=== PATIENT | female | born 1940 | race Caucasian/White ===

== ENCOUNTER → 2018-08-04 10:01 | Outpatient (CLI) | payer SELFPAY ==
--- NOTE | 2018-08-04 10:09 | ECHOD_ITS ---
Reason For Study: AORTIC STENOSIS Procedure This was a 2D Doppler, Color Flow transthoracic echocardiogram. Exam performed in department. Left Ventricle Normal LV size. Left ventricular systolic function is normal. The estimated ejection fraction is 60 %. Stage 3 diastolic dysfunction. No regional wall motion abnormalities noted. Atria The left atrium is moderately enlarged. Normal right atrium. Mitral Valve Normal mitral valve. Mild-Moderate (1-2+) eccentric mitral valve insufficiency. Tricuspid Valve Normal tricuspid valve. Mild to moderate (1-2+) tricuspid valve insufficiency. Pulmonary artery systolic pressure is 35 mmHg. Aortic Valve Trisinus/trileaflet aortic valve. Moderate focal aortic valve thickening. Peak aortic valve gradient 55 mmHg. Mean aortic valve gradient 33 mmHg. Severe aortic stenosis. Calculated aortic valve area (continuity equation) is 0.8-0.9 cm2. Trivial eccentric aortic valve insufficiency. Pulmonic Valve Normal pulmonic valve. Great Vessels Normal aortic root. The pulmonary artery is normal size. Normal inferior vena cava. Pericardium/Pleural No pericardial effusion. MMode/2D Measurements & Calculations LVIDd: 4.7 cm IVSd: 1.0 cm LVOT diam: 2.0 cm LVIDs: 3.2 cm LVPWd: 1.1 cm LVOT area: 3.3 cm2 RVDd: 3.6 cm FS: 31.2 % Ao root diam: 3.6 cm LAV(MOD-bp): 71.5 ml Aortic Valve Planimetry: 0.86 cm2 LAV(MOD-bp) Indexed: 39.1 ml/m2 LAV(MOD-sp2): 60.9 ml LAV(MOD-sp4): 78.8 ml LA dimension(2D): 4.7 cm LA A4 area: 23.7 cm2 RA A4 area: 14.6 cm2 Time Measurements MV dec time: 0.16 sec Doppler Measurements & Calculations MV E max augustin: 124.1 cm/sec Lat Peak E' Augustin: 7.5 cm/sec Med Peak E' Augustin: 3.9 cm/sec MV A max augustin: 60.0 cm/sec E/E' lat: 16.6 E/E' med: 32.1 MV E/A: 2.1 Ao V2 max: 374.9 cm/sec AI max augustin: 509.2 cm/sec LV V1 max: 93.6 cm/sec Ao max P.4 mmHg AI max P.8 mmHg LV V1 max P.5 mmHg Ao V2 mean: 274.3 cm/sec AI dec slope: 293.6 cm/sec2 LV V1 mean P.1 mmHg Ao mean P.6 mmHg AI P1/2t: 507.9 msec LV V1 mean: 69.7 cm/sec Ao V2 VTI: 103.8 cm LV V1 VTI: 26.6 cm TAMIKA(I,D): 0.84 cm2 TAMIKA(V,D): 0.82 cm2 SV(LVOT): 87.5 ml PA V2 max: 71.6 cm/sec PI end-d augustin: 94.4 cm/sec TR max augustin: 274.3 cm/sec TR max P.1 mmHg Interpretation Summary Normal LV size. Left ventricular systolic function is normal. The estimated ejection fraction is 60 %. Stage 3 diastolic dysfunction. Mild to moderate (1-2+) tricuspid valve insufficiency. Pulmonary artery systolic pressure is 35 mmHg. Severe aortic stenosis. Calculated aortic valve area (continuity equation) is 0.8-0.9 cm2. Compared to the previous the AV is severe and worse. Ordering Physician: Isamar Brown/Jasper Larson Referring Physician: Isamar Brown Performed By: Patrica Damon, LILY, RVT
== END ==
PROVIDERS: Family Provider Family Medicine; PCP Family Medicine; Referring Provider Physician Assistant Medical; Visit Provider Physician Assistant Medical
DX: I25.10 Atherosclerotic heart disease of native coronary artery without angina pectoris (principal); I35.0 Nonrheumatic aortic (valve) stenosis
CPT/HCPCS: 93306

== ENCOUNTER → 2019-03-01 13:29 | Outpatient (CLI) | payer SELFPAY ==
[2019-02-15 08:39] VITALS: BMI 34.7
--- NOTE | 2019-03-01 13:33 | ECHOD_ITS ---
Reason For Study: MURMUR Procedure This was a 2D Doppler, Color Flow transthoracic echocardiogram. Exam performed in department. Left Ventricle Normal LV size. Left ventricular systolic function is normal. The estimated ejection fraction is 65 %. Stage 2 diastolic dysfunction. No regional wall motion abnormalities noted. Right Ventricle Normal RV size. Normal systolic function. Atria The left atrium is moderately enlarged. Normal right atrium. Mitral Valve Normal mitral valve. Mild (1+) eccentric mitral valve insufficiency. Tricuspid Valve Normal tricuspid valve. Mild to moderate (1-2+) tricuspid valve insufficiency. Pulmonary artery systolic pressure is 44 mmHg. Aortic Valve Trisinus/trileaflet aortic valve. Mild focal aortic valve calcification. Mild (1+) aortic valve insufficiency. Great Vessels Normal aortic root. The pulmonary artery is normal size. Normal inferior vena cava. Pericardium/Pleural No pericardial effusion. MMode/2D Measurements & Calculations LVIDd: 4.7 cm IVSd: 0.93 cm LVOT diam: 2.0 cm LVIDs: 3.0 cm LVPWd: 0.90 cm LVOT area: 3.1 cm2 RVDd: 3.5 cm FS: 35.6 % Ao root diam: 3.8 cm LAV(MOD-bp): 112.5 ml LVAd ap4: 28.8 cm2 LAV(MOD-bp) Indexed: 60.1 ml/m2 EDV(MOD-sp4): 93.3 ml LAV(MOD-sp2): 117.9 ml EDV(sp4-el): 90.9 ml LAV(MOD-sp4): 102.6 ml LVAs ap4: 16.1 cm2 ESV(MOD-sp4): 35.8 ml ESV(sp4-el): 34.3 ml EF(MOD-sp4): 61.6 % EF(sp4-el): 62.3 % SV(MOD-sp4): 57.5 ml SV(sp4-el): 56.7 ml LA A4 area: 27.8 cm2 LA dimension(2D): 4.3 cm RA A4 area: 20.0 cm2 Time Measurements MV dec time: 0.23 sec Doppler Measurements & Calculations MV E max augustin: 116.3 cm/sec Lat Peak E' Augustin: 2.9 cm/sec Med Peak E' Augustin: 5.0 cm/sec MV A max augustin: 77.1 cm/sec E/E' lat: 40.1 E/E' med: 23.4 MV E/A: 1.5 MV V2 max: 134.4 cm/sec Ao V2 max: 406.2 cm/sec AI max augustin: 459.7 cm/sec MV max P.2 mmHg Ao max P.0 mmHg AI max P.6 mmHg MV V2 mean: 59.6 cm/sec Ao V2 mean: 301.2 cm/sec MV mean P.7 mmHg Ao mean P.5 mmHg AI dec slope: 227.0 cm/sec2 MV V2 VTI: 43.3 cm Ao V2 VTI: 112.8 cm AI P1/2t: 593.1 msec MVA(VTI): 2.2 cm2 TAMIKA(I,D): 0.86 cm2 TAMIKA(V,D): 0.86 cm2 LV V1 max: 113.2 cm/sec SV(LVOT): 97.4 ml PA V2 max: 78.6 cm/sec LV V1 max P.1 mmHg LV V1 mean P.0 mmHg LV V1 mean: 81.6 cm/sec LV V1 VTI: 31.7 cm TR max augustin: 313.8 cm/sec MV P1/2t-pr_phl: 68.1 msec TR max P.0 mmHg Interpretation Summary Normal LV size. Left ventricular systolic function is normal. The estimated ejection fraction is 65 %. Stage 2 diastolic dysfunction. Mild to moderate (1-2+) tricuspid valve insufficiency. Mild (1+) eccentric mitral valve insufficiency. Ordering Physician: Isamar Brown/Jasper Larson Referring Physician: JUANPABLO PEREIRA Performed By: Patrica Damon, RDCS, RVT
== END ==
PROVIDERS: Family Provider Family Medicine; PCP Family Medicine; Referring Provider Physician Assistant Medical; Visit Provider Physician Assistant Medical
DX: I35.0 Nonrheumatic aortic (valve) stenosis (principal)
CPT/HCPCS: 93306

== ENCOUNTER 2020-01-23 08:49 | Outpatient (CLI) | payer SELFPAY, OTHER ==
[2020-01-12 14:33] VITALS: BMI 35.1
[2020-01-12 15:53] VITALS: BMI 35.1
--- NOTE | 2020-01-12 16:20 | RAD_ITS ---
STUDY: X-RAY CHEST REASON FOR EXAM: Female, 79 years old. SOB X FEW WEEKS. HX OF HTN TECHNIQUE: Frontal and lateral views of the chest. COMPARISON: 04-22-16 FINDINGS: Median sternotomy wires and CABG clips. The lungs are clear and expanded. There is no demonstrated pleural abnormality. Stable cardiomediastinal silhouette. Normal mediastinum and tor. Normal visualized pulmonary arteries. Normal visualized aortic arch and descending thoracic aorta. Normal visualized thoracic spine. Normal visualized ribs, clavicles, and shoulders. There is no demonstrated abnormality of the visualized soft tissue structures of the upper abdomen. RAD/Chest PA and Lateral IMPRESSION: No acute pulmonary findings. Electronically Signed: Deven Hall MD at 22:38 EDT Tel , Service support ,
[2020-01-12 17:02] LABS: Absolute Lymphocyte Count 4.25 X10^3/uL (0.83-4.51); Absolute Neutrophil Count 5.7 X10^3/uL (2.0-7.7); Basophil# 0.08 X10^3/uL; Basophil% 0.7 % (0-1); Eosinophil# 0.46 X10^3/uL; Eosinophils% 4.1 % (0-5); Hematocrit 42.4 % (37-47); Hemoglobin 13.7 g/dL (12.0-15.0); Lymphocyte # 4.25 X10^3/ul (4.0); Lymphocyte % 37.9 % (19-41); Mean Corp Hgb Conc 32.3 g/dL (32-36); Mean Corpuscular Hgb 28.2 pg (27.0-32.0); Mean Corpuscular Volume 87.2 fL (81-99); Mean Platelet Vol. 10.2 fl (6.2-12.0); Monocyte# 0.72 X10^3/uL; Monocyte% 6.4 % (0-10); NRBC Flagged by Analyzer 0 % (0-5); Neutrophil # 5.66 X10^3/uL (2.7-7.7); Neutrophil % 50.5 % (47-70); Platelet Count 283 K/mm3 (150-450); RBC Distribution Width CV 14.2 % (11.6-14.6); RBC Distribution Width SD 45.3 fl (35.1-43.9); Red Blood Count 4.86 M/mm3 (4.2-5.4); White Blood Count 11.2 K/mm3 (4.4-11.0)
[2020-01-12 17:44] LABS: Anion Gap 4 (5-15); BUN 20 mg/dL (7-18); BUN/Creat Ratio 19.6 RATIO (10-20); Calcium,Total 9.2 mg/dL (8.5-10.1); Chloride 102 mmol/L (98-107); Creatinine, Serum 1.02 mg/dL (0.55-1.02); EST Glomerular Filtration Rate 56 mL/min (>60); Est Glom Filt Rate - Afr Amer 67 mL/min (>60); Glucose 107 mg/dL (74-106); Potassium 3.6 mmol/L (3.5-5.1); Sodium Level 138 mmol/L (136-145)
--- NOTE | 2020-01-23 08:50 | ECHOD_ITS ---
Reason For Study: S/P CABG Procedure This was a 2D Doppler, Color Flow transthoracic echocardiogram. Exam performed in department. Left Ventricle Normal LV size. Left ventricular systolic function is normal. The estimated ejection fraction is 60 %. Stage 2 diastolic dysfunction. No regional wall motion abnormalities noted. Right Ventricle Normal RV size. Normal systolic function. Atria The left atrium is mildly enlarged. Normal right atrium. Mitral Valve There is mild mitral annular calcification. Mild (1+) eccentric mitral valve insufficiency. Tricuspid Valve Normal tricuspid valve. Unable to estimate RV systolic pressure due to inadequate jet, pulmonary artery pressure probably normal. Aortic Valve Trisinus/trileaflet aortic valve. Moderate focal aortic valve calcification. Peak aortic valve gradient 80 mmHg. Mean aortic valve gradient 40 mmHg. Critical aortic stenosis. Mild (1+) eccentric aortic valve insufficiency. Pulmonic Valve Normal pulmonic valve. Great Vessels Normal aortic root. The pulmonary artery is normal size. Normal inferior vena cava. Pericardium/Pleural No pericardial effusion. MMode/2D Measurements & Calculations LVIDd: 5.0 cm IVSd: 1.2 cm LVOT diam: 2.0 cm LVIDs: 2.7 cm LVPWd: 1.1 cm LVOT area: 3.1 cm2 FS: 47.2 % Ao root diam: 3.6 cm LAV(MOD-bp): 72.2 ml LA A4 area: 23.2 cm2 LA dimension: 4.4 cm LAV(MOD-bp) Indexed: 38.2 ml/m2 LAV(MOD-sp2): 65.2 ml LAV(MOD-sp4): 70.5 ml RA A4 area: 19.8 cm2 Time Measurements MV dec time: 0.32 sec Doppler Measurements & Calculations MV E max augustin: 105.2 cm/sec Lat Peak E' Augustin: 7.6 cm/sec Med Peak E' Augustin: 4.6 cm/sec MV A max augustin: 88.4 cm/sec E/E' lat: 13.9 E/E' med: 22.9 MV E/A: 1.2 MV V2 max: 141.9 cm/sec MV P1/2t max augustin: 141.2 cm/sec Ao V2 max: 445.4 cm/sec MV max P.1 mmHg MV P1/2t: 72.6 msec Ao max P.4 mmHg MV V2 mean: 66.7 cm/sec MV dec slope: 569.6 cm/sec2 Ao V2 mean: 288.4 cm/sec MV mean P.2 mmHg Ao mean P.8 mmHg MV V2 VTI: 49.6 cm MVA(P1/2t): 3.0 cm2 Ao V2 VTI: 125.2 cm MVA(VTI): 1.5 cm2 TAMIKA(I,D): 0.61 cm2 TAMIKA(V,D): 0.57 cm2 AI max augustin: 477.5 cm/sec LV V1 max: 82.0 cm/sec MR max augustin: 586.6 cm/sec AI max P.2 mmHg LV V1 max P.7 mmHg MR max P.6 mmHg LV V1 mean P.6 mmHg MR mean augustin: 454.5 cm/sec AI dec slope: 224.4 cm/sec2 LV V1 mean: 58.9 cm/sec MR mean P.3 mmHg AI P1/2t: 623.2 msec LV V1 VTI: 24.7 cm MR VTI: 247.9 cm SV(LVOT): 76.3 ml PA V2 max: 89.6 cm/sec Interpretation Summary Normal LV size. Left ventricular systolic function is normal. The estimated ejection fraction is 60 %. Stage 2 diastolic dysfunction. Critical aortic stenosis. Mild (1+) eccentric aortic valve insufficiency. Ordering Physician: Jasper Larson Referring Physician: Blaine Anderson Performed By: Otoniel Evans RCS
[2020-01-23 10:10] VITALS: BMI 34.6
--- NOTE | 2020-01-23 12:52 | CL.D_ITS ---
Patient Name: JASMIN PETERSON Study Date: 01/23/2020 Performing: Jasper Larson MD Ht: 62 inches 157.48 cm : 1940 Wt: 189.8 lbs 86.09 kg Age: 79 Gender: female BSA: 1.87 PROCEDURE(S) PERFORMED [id number]/COR/CABG CLINICAL PROFILE AND INDICATIONS Indications: Valvular Disease Heart Failure: None Stress/Imaging Stress/Image Study Performed: No CAD Presentations: No Sxs, no angina. CONCLUSIONS Moderately severe [place] vessel disease involving mid LAD stenosis, subtotally occluded circumflex ar ari, and diffusely diseased right coronary artery. Patent left internal mammary artery to the left anterior descending artery, saphenous vein graft to the diagonal vessel, saphenous vein graft to the circumflex artery, and saphenous vein graft to the posterior descending artery. RECOMMENDATIONS Severe aortic stenosis for TAVR consideration DESCRIPTION OF PROCEDURE The patient arrived to the procedure lab. The risks and benefits of the procedure as well as a full d escription of our services here and current unavailability of surgical backup were fully explained to the patient and/or their significant other prior to the catheterization. The Timeout was completed, verifying the correct patient and procedure. The patient's procedural site was prepped and draped in the usual fashion. Local anesthetic was given subcutaneously to left radial region with Lidocaine 2%. Local anesthetic was given subcutaneously to right groin region with Lidocaine 2%. Using a modified Seldinger technique, arterial access was obtained via the left radial artery, a 6Fr sheath was insert ed., arterial access was obtained via the right femoral artery, a 5Fr sheath was inserted. Left Evon nary Artery selective angiography was performed in multiple views using a 5 Fr. JL4 catheter. Right C oronary Artery selective angiography was then performed in multiple views using a 5 Fr. 3DRC (Keshav) catheter. Saphenous Vein graft to the DIAG 1 selective angiography was performed in m ultiple views using a 5 Fr. 3DRC (Keshav) catheter. Sequintial Saphenous Vein graft to the Circumfl ex and PL of circumflex selective angiography was performed in multiple views using a 5 Fr. 3DRC ([facility]) catheter. Left internal mammary artery graft to the LAD selective angiography was performed in multiple views using a 5 Fr. IM catheter. Saphenous Vein graft to the RPDA selective angiography was performed in multiple views using a 5 Fr. AR MOD catheter.Contrast was injected through the sheath a nd the Right Iliac and Femoral artery were assessed for possible closure device.The arterial sheath w as pulled and a TR Band was applied for hemostasis 10cc air inserted. The arterial sheath was pulled and a Mynx closure device was deployed for hemostasis CORONARY ANGIOGRAPHY DOMINANCE: Right Dominant LEFT HEART ASSESSMENT Left Ventricular Ejection Fraction: by Echo 60 % Normal LV wall motion Normal Left Ventricular systolic function LEFT MAIN: 30 % Stenosis LEFT ANTERIOR DESCENDING ARTERY: MID LAD: Long 80 % Stenosis CIRCUMFLEX ARTERY: PROX CIRC: Previously placed stent is occluded RIGHT CORONARY ARTERY: PROX RCA: Diffusely diseased up to 80 % DISTAL RCA: Diffusely diseased up to 80 % GRAFTS: Saphenous Vein graft to the RPDA is patent MCKOY graft to the Mid LAD is patent Saphenous Vein graft to the 1st Diagonal is patent Sequential graft to the distal PL Saphenous Vein graft to the Distal CIRC is patent VALVE FINDINGS: Aortic Valve Calcification - severe COMPLICATIONS No Complications PROCEDURE MEDICATIONS Fentanyl 50 mcg IV Versed 1 mg IV Versed 1 mg IV Oxygen: 2 L/min via nasal cannula SUMMARY OF HEMODYNAMIC DATA Time AIR REST ECG 10:17:03 AO 123/49 (77) SA 11:17:47 AO 115/44 (69) 11:39:18 Signed By Jasper Larson MD On 01/23/2020 12:50:44 PM Jasper Larson MD
== END 2020-01-23 15:15 | disposition home or self-care (01) ==
PROVIDERS: PCP Family Medicine; Referring Provider Internal Medicine Cardiovascular Disease; Visit Provider Internal Medicine Cardiovascular Disease
DX: I25.10 Atherosclerotic heart disease of native coronary artery without angina pectoris (principal); I35.0 Nonrheumatic aortic (valve) stenosis; I10 Essential (primary) hypertension; E78.00 Pure hypercholesterolemia, unspecified; Z95.1 Presence of aortocoronary bypass graft
CPT/HCPCS: 36415; 71046; 80048; 85025; 93005; 93306; 93455; 93459; 99152; 99153; C1760; J7040; Q9967; C1769; C1894

== ENCOUNTER 2021-02-04 11:14 | Emergency (ER) | payer OTHER, SELFPAY ==
[2021-01-15 13:22] VITALS: BMI 34.2
[2021-02-04 11:15] VITALS: BP 198/77; PULSE 67; RESP 30; TEMP 36.8; O2SAT 95; BMI 31.4
[2021-02-04 11:22] VITALS: BP 198/77; PULSE 67; RESP 30; TEMP 36.8; O2SAT 95
--- NOTE | 2021-02-04 11:35 | EKG12_ITS ---
Test Reason : CP Blood Pressure : / mmHG Vent. Rate : 065 BPM Atrial Rate : 065 BPM P-R Int : 174 ms QRS Dur : 100 ms QT Int : 450 ms P-R-T Axes : 077 -24 218 degrees QTc Int : 468 ms Normal sinus rhythm ST & T wave abnormality, consider inferior ischemia ST & T wave abnormality, consider anterolateral ischemia Abnormal ECG Confirmed by SAURABH CORONEL, ULISSES ([id number]), production editor JOAQUIM TRAORE ([id number]) on 02/06/2021 10:02:54 AM Referred By: MISTY/MIKEL Confirmed By:ULISSES WILEY MD
--- NOTE | 2021-02-04 11:38 | RAD_ITS ---
STUDY: X-RAY CHEST REASON FOR EXAM: Female, 80 years old. Chest pain TECHNIQUE: Single AP portable view of the chest. COMPARISON: Comparison is made with prior study dated 01/12/2020. FINDINGS: EKG electrodes are seen. The lungs are clear and expanded. There is no demonstrated pleural abnormality. Sternal cerclage wires and vascular clips are present from a prior sternotomy and coronary artery bypass graft procedure (CABG). Normal mediastinum and tor. Normal visualized pulmonary arteries. There is atherosclerotic calcification of the aortic arch with tortuosity. There are diffuse degenerative changes of the visualized thoracic spine. Calcific tendinitis of the left shoulder. There is no demonstrated abnormality of the visualized soft tissue structures of the upper abdomen. RAD/Chest 1 View (Portable) IMPRESSION: No acute abnormality is seen. Electronically Signed: Brian Rea MD at 12:28 EDT , Service support ,
--- NOTE | 2021-02-04 11:47 | ED.VIS.CHEST ---
HPI History of Present Illness Chief Complaint: Chest Pain Informant: patient Onset/Context/Timing Onset: Days Activity at onset: gradual Quality: Positive for Heaviness Location: Substernal Current Severity: Mild Maximum Severity: Mild Narrative Narrative: Patient presents secondary to chest heaviness. She reports having chest heaviness for the past several days. This morning she had what she describes as chest pain and had a brief episode of sharp pain. Patient has a history of coronary disease and a leaky valve. She states she was told if she ever has chest pain she should come to the emergency room. Because of the episode of sharp pain this morning she presents for evaluation. She denies significant shortness of breath. She denies increased edema. She does report mild cough. [facility] Medical History (Updated 02/04/21 @ 14:[address] 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 Chronic diastolic (congestive) heart failure Essential (primary) hypertension HLD (hyperlipidemia) Left ventricular diastolic dysfunction Nonrheumatic aortic valve stenosis Home Medications aspirin 81 mg PO DAILY 05/08/16 [History Last Taken 01/23/20] glipizide 2.5 mg tablet, extended release 24 hr 5 mg PO BID tab 02/15/19 [History Last Taken Unknown] amlodipine 10 mg tablet 10 mg PO DAILY #90 tab 01/12/20 [Rx Last Taken 01/23/20] atenolol 50 mg tablet 50 mg PO DAILY #90 tab 01/12/20 [Rx Last Taken 01/23/20] lisinopril 40 mg tablet 40 mg PO DAILY #90 tab 01/12/20 [Rx Last Taken 01/23/20] furosemide 40 mg tablet 40 mg PO DAILY #90 tab 08/20/20 [Rx Last Taken Unknown] hydrochlorothiazide 12.5 mg tablet 12.5 mg PO DAILY #30 tablet 09/12/20 [Rx Last Taken Unknown] simvastatin 80 mg tablet 80 mg PO QHS #90 tab 11/26/20 [Rx Last Taken Unknown] metformin 1,000 mg tablet 1,000 mg PO BIDCM #180 tab 01/04/21 [Rx Last Taken Unknown] potassium chloride 20 meq PO BID #8 tab 02/04/21 [Rx Last Taken Unknown] Allergy/AdvReac Type Severity Reaction Status Date / Time No Known Allergies Allergy Verified 02/04/21 11:21 Family History Daughter CAD (coronary artery disease) Mother Myocardial infarction Surgical History H/O coronary artery bypass surgery (05/09/16) History of coronary artery stent placement (02/11/05) History of left heart catheterization (01/23/20) History of tonsillectomy Social History Smoking Status: Never smoker alcohol intake: never diet: diabetic caffeine: No what type of physical activity do you participate in: none ROS ROS ED Constitutional Constitutional ED: Denies chills or fever(s) Eyes Eyes: Denies change in vision ENT ENT ED: Denies sore throat Cardiovascular Cardiovascular: Reports chest pain Respiratory/Chest Respiratory/Chest: Reports cough; Denies dyspnea Gastrointestinal Gastrointestinal: Denies abdominal pain, diarrhea, nausea or vomiting Genitourinary Genitourinary ED: Denies dysuria Musculoskeletal Musculoskeletal: Denies back pain Integumentary Denies rash Neurologic Neurologic: Denies headache(s) or weakness Psychiatric Psychiatric: Denies anxiety or depression Allergic/Immunologic Allergic/Immunologic ED: Denies urticaria EXAM Physical Exam Const Vital Signs: 02/04/21 11:15 02/04/21 11:22 02/04/21 11:36 Temperature 98.2 F 98.2 F Temperature Source Oral Oral Pulse Rate 67 67 Respiratory Rate 30 H 30 H Respiratory Effort Short of Breath Blood Pressure 198/77 H 198/77 H Blood Pressure Mean 117 117 Pulse Ox 95 95 Oxygen Delivery Method Room Air Room Air Room Air 02/04/21 12:28 02/04/21 13:31 Temperature Temperature Source Pulse Rate 55 L 52 L Respiratory Rate 16 18 Respiratory Effort Blood Pressure 190/66 H 166/67 H Blood Pressure Mean 107 100 Pulse Ox 96 96 Oxygen Delivery Method Room Air Room Air Positive well nourished and well developed General Appearance ED: well developed HEENT Reports normocephalic and head/scalp atraumatic Eyes PERRL and EOMs intact bilaterally Neck supple Chest Wall inspection of chest normal and palpation of chest normal Resp normal respiratory effort and clear to auscultation bilaterally Cardio regular rate and regular rhythm Heart Sounds: murmur GI normal to inspection, nondistended, normoactive bowel sounds Palpation: soft Extremity normal to inspection Neuro oriented x3 and no sensory deficits noted Sensorium / Orientation: alert Motor Exam: strength 5/5 throughout Psych mental status grossly normal Skin no rashes or lesions noted Heart Score History: Slightly/Non-Suspicious ECG: Normal Age: >/= 65 years Risk Factors: >/= 3 Risk Factors or History of CAD Troponin: </= Normal Limit Score: 4 MDM MDM MDM Narrative Medical decision making narrative: Patient was given aspirin on arrival. EKG, labs, Covid swab, chest x-ray obtained. Lab Data Attestation: I reviewed the patient's lab results. Labs: Laboratory Results - last 24 hr 02/04/21 02/04/21 02/04/21 11:20 11:20 11:20 WBC 11.0 RBC 4.89 Hgb 14.1 Hct 43.1 MCV 88.1 MCH 28.8 MCHC 32.7 RDW Std Deviation 42.3 RDW Coeff of Fito 13.2 Plt Count 310 MPV 10.3 Immature Gran % (Auto) 0.500 Neut % (Auto) 57.0 Lymph % (Auto) 29.4 Humphreys % (Auto) 4.7 Eos % (Auto) 7.8 H Baso % (Auto) 0.6 Absolute Neuts (auto) 6.2 Absolute Lymphs (auto) 3.22 Nucleated RBC % 0 D-Dimer Quant (PE/DVT) Sodium 137 Potassium 3.1 L Chloride 100 Carbon Dioxide 31.0 Anion Gap 6 BUN 17 Creatinine 0.86 Estim Creat Clear Calc 47.73 Est GFR (MDRD) Af Amer 82 Est GFR (MDRD) Non-Af 68 BUN/Creatinine Ratio 19.8 Glucose 172 H Calcium 9.9 Troponin I High Sens 10.1 B-Natriuretic Peptide 236.9 H 02/04/21 02/04/21 12:00 13:40 WBC RBC Hgb Hct MCV MCH MCHC RDW Std Deviation RDW Coeff of Fito Plt Count MPV Immature Gran % (Auto) Neut % (Auto) Lymph % (Auto) Humphreys % (Auto) Eos % (Auto) Baso % (Auto) Absolute Neuts (auto) Absolute Lymphs (auto) Nucleated RBC % D-Dimer Quant (PE/DVT) 0.55 H* Sodium Potassium Chloride Carbon Dioxide Anion Gap BUN Creatinine Estim Creat Clear Calc Est GFR (MDRD) Af Amer Est GFR (MDRD) Non-Af BUN/Creatinine Ratio Glucose Calcium Troponin I High Sens 10.0 B-Natriuretic Peptide Radiography Chest X-Ray - ED: 1 View, Read by ED Physician and Chronic Changes Diagnostic Testing: Radiology Impression Chest X-Ray 02/04/21 11:38 IMPRESSION: No acute abnormality is seen. Electronically Signed: Brian Rea MD at 12:28 EDT , Service support , EKG Initial EKG: Attestation: I personally reviewed and interpreted this EKG as follows: Interpretation: Sinus Rhythm (Sinus at 65. T wave inversion in the inferior lateral leads, unchanged when compared to prior.) Treatment and Re-Evaluation Comments:: Repeat evaluation patient resting comfortably. Lab work reveals mildly low potassium. Troponin negative x2. D-dimer normal when adjusted for age. She was given oral potassium replacement. Chest x-ray per my interpretation reveals no infiltrate. Covid swab negative. On repeat evaluation patient has no complaints. It does appear that at her recent cardiology visit she had voiced that she was not interested in aortic valve replacement, however she states she is open to talking with someone about this. I spoke with Dr. Larson. He will have the office call the patient with referral information. Discharge Plan Triage Chief Complaint: Chest Pain ED Provider: Aneta Wright Dx/Rx/DC Orders Clinical Impression: Chest pain Instructions: ED Chest Pain, Noncardiac Prescriptions: New potassium chloride 20 mEq tablet extended release 20 meq PO BID Qty: 8 RF: 0 No Action glipizide 2.5 mg tablet extended release 24hr 5 mg PO BID RF: 0 atenolol 50 mg tablet 50 mg PO DAILY Qty: 90 RF: 3 lisinopril 40 mg tablet 40 mg PO DAILY Qty: 90 RF: 3 amlodipine 10 mg tablet 10 mg PO DAILY Qty: 90 RF: 3 hydrochlorothiazide 12.5 mg tablet 12.5 mg PO DAILY Qty: 30 RF: 12 aspirin 81 MG tablet,chewable 81 mg PO DAILY RF: 0 furosemide [Lasix] 40 mg tablet 40 mg PO DAILY Qty: 90 RF: 3 simvastatin 80 mg tablet 80 mg PO QHS Qty: 90 RF: 4 metformin 1,000 mg tablet 1,000 mg PO BIDCM Qty: 180 RF: 3 Primary Care Provider: Blaine Anderson Referrals: Blaine Anderson MD [Primary Care Provider] - As Needed Activity Restrictions/Additional Instructions: Dr. Larson's office will call you with referral information about your aortic valve. Disposition Disposition: Home, Self Care
[2021-02-04 11:50] LABS: Absolute Lymphocyte Count 3.22 X10^3/uL (0.83-4.51); Absolute Neutrophil Count 6.2 X10^3/uL (2.0-7.7); Basophil# 0.07 X10^3/uL; Basophil% 0.6 % (0-1); Eosinophil# 0.86 X10^3/uL; Eosinophils% 7.8 % (0-5); Hematocrit 43.1 % (37-47); Hemoglobin 14.1 g/dL (12.0-15.0); Lymphocyte # 3.22 X10^3/ul (0.83-4.51); Lymphocyte % 29.4 % (19-41); Mean Corp Hgb Conc 32.7 g/dL (32-36); Mean Corpuscular Hgb 28.8 pg (27.0-32.0); Mean Corpuscular Volume 88.1 fL (81-99); Mean Platelet Vol. 10.3 fl (6.2-12.0); Monocyte# 0.52 X10^3/uL; Monocyte% 4.7 % (0-10); NRBC Flagged by Analyzer 0 % (0-5); Neutrophil # 6.24 X10^3/uL (2.7-7.7); Platelet Count 310 K/mm3 (150-450); RBC Distribution Width CV 13.2 % (11.6-14.6); RBC Distribution Width SD 42.3 fl (35.1-43.9); Red Blood Count 4.89 M/mm3 (4.2-5.4)
[2021-02-04 11:59] LABS: Anion Gap 6 (5-15); BUN 17 mg/dL (7-18); BUN/Creat Ratio 19.8 RATIO (10-20); Calcium,Total 9.9 mg/dL (8.5-10.1); Chloride 100 mmol/L (98-107); Creatinine, Serum 0.86 mg/dL (0.55-1.02); EST Glomerular Filtration Rate 68 mL/min (>60); Est Glom Filt Rate - Afr Amer 82 mL/min (>60); Estimated Creatinine Clearance 47.73 ml/min; Glucose 172 mg/dL (74-106); Potassium 3.1 mmol/L (3.5-5.1); Sodium Level 137 mmol/L (136-145); Troponin-I HS 10.1 pg/mL (3.0-53.7)
[2021-02-04 12:17] LABS: BNP,B-Type NATRIURETIC PEPTIDE 236.9 pg/mL (0-100)
[2021-02-04 12:20] LABS: D-Dimer Quantitative (DVT/PE) 0.55 FEU/ug/m (0.27-0.49)
[2021-02-04] MEDS: Aspirin 81 MG TAB.CHEW 324 MG PO (12:20)
[2021-02-04 12:28] VITALS: BP 190/66; PULSE 55; RESP 16; O2SAT 96
[2021-02-04 13:31] VITALS: BP 166/67; PULSE 52; RESP 18; O2SAT 96
[2021-02-04] MEDS: Potassium Chloride Oral Tablet 20 MEQ 40 MEQ PO (13:32)
== END 2021-02-04 15:09 | disposition home or self-care (01) ==
PROVIDERS: Emergency Provider Emergency Medicine; PCP Family Medicine
DX: R07.89 Other chest pain (principal); I35.0 Nonrheumatic aortic (valve) stenosis; I25.10 Atherosclerotic heart disease of native coronary artery without angina pectoris; I11.0 Hypertensive heart disease with heart failure; I50.32 Chronic diastolic (congestive) heart failure; E78.5 Hyperlipidemia, unspecified; Z95.1 Presence of aortocoronary bypass graft; Z79.82 Long term (current) use of aspirin; Z79.899 Other long term (current) drug therapy
CPT/HCPCS: 71045; 80048; 83880; 84484; 85025; 85379; 87426; 93005; 99285; A4216

== ENCOUNTER → 2021-12-17 | Outpatient (CLI) | payer OTHER, SELFPAY ==
[2021-12-17 18:26] LABS: Anion Gap 9 (5-15); BUN 18 mg/dL (7-18); Calcium,Total 10.1 mg/dL (8.5-10.1); Chloride 99 mmol/L (98-107); Creatinine, Serum 0.95 mg/dL (0.55-1.02); EST Glomerular Filtration Rate 60 mL/min (>60); Est Glom Filt Rate - Afr Amer 73 mL/min (>60); Glucose 128 mg/dL (74-106); Potassium 3.2 mmol/L (3.5-5.1); Sodium Level 138 mmol/L (136-145)
== END | disposition home or self-care (01) ==
PROVIDERS: PCP Family Medicine; Referring Provider Nurse Practitioner Gerontology; Visit Provider Nurse Practitioner Gerontology
DX: I10 Essential (primary) hypertension (principal)
CPT/HCPCS: 36415; 80048

== ENCOUNTER → 2022-05-02 | Outpatient (CLI) | payer OTHER, SELFPAY ==
--- NOTE | 2022-05-02 12:42 | ECHOD_ITS ---
Version 2 Reason For Study: TAVR Procedure This was a 2D Doppler, Color Flow transthoracic echocardiogram. Exam performed in department. Left Ventricle Normal LV size. Left ventricular systolic function is normal. The estimated ejection fraction is 60 %. No regional wall motion abnormalities noted. Right Ventricle Normal RV size. Normal systolic function. Atria The left atrium is mildly enlarged. Normal right atrium. Mitral Valve There is mild mitral annular calcification. Bileaflet diffuse mitral valve thickening. Mild (1+) eccentric mitral valve insufficiency. Tricuspid Valve Normal tricuspid valve. Mild (1+) tricuspid valve insufficiency. Pulmonary artery systolic pressure is 30 mmHg. Aortic Valve Peak aortic valve gradient 34 mmHg. Mean aortic valve gradient 17 mmHg. Stable appearing bioprosthetic aortic valve apparatus. 23mm jaxson valve. Pulmonic Valve Normal pulmonic valve. Great Vessels Normal aortic root. The pulmonary artery is normal size. Normal inferior vena cava. Pericardium/Pleural No pericardial effusion. MMode/2D Measurements & Calculations LVIDd: 5.0 cm IVSd: 1.1 cm LVOT diam: 2.0 cm LVPWd: 1.0 cm LVOT area: 3.2 cm2 Ao root diam: 3.5 cm LAV(MOD-bp): 62.3 ml LA dimension: 4.3 cm LA A4 area: 22.4 cm2 LAV(MOD-bp) Indexed: 33.3 ml/m2 LAV(MOD-sp2): 55.4 ml LAV(MOD-sp4): 70.2 ml RA A4 area: 15.9 cm2 Time Measurements MV dec time: 0.22 sec Doppler Measurements & Calculations MV E max augustin: 84.0 cm/sec Lat Peak E' [place]: 8.2 cm/sec Med Peak E' [place]in: 6.1 cm/sec MV A max augustin: 90.9 cm/sec E/E' lat: 10.2 E/E' med: 13.8 MV E/A: 0.92 MV V2 max: 106.4 cm/sec MV P1/2t max august[place]: 104.8 cm/sec Ao V2 max: 293.3 cm/sec MV max P.5 mmHg MV P1/2t: 72.6 msec Ao max P.5 mmHg MV V2 mean: 58.2 cm/sec Ao V2 mean: 194.6 cm/sec MV mean P.6 mmHg MV dec slope: 423.0 cm/sec2 Ao mean P.7 mmHg MV V2 VTI: 33.4 cm MVA(P1/2t): 3.0 cm2 Ao V2 VTI: 63.1 cm MVA(VTI): 2.6 cm2 TAMIKA(I,D): 1.4 cm2 TAMIKA(V,D): 1.2 cm2 LV V1 max: 108.8 cm/sec SV(LVOT): 86.6 ml PA V2 max: 87.8 cm/sec LV V1 max P.7 mmHg LV V1 mean P.7 mmHg LV V1 mean: 76.6 cm/sec LV V1 VTI: 26.8 cm TR max augustin: 264.0 cm/sec TR max P.9 mmHg ECHO/Echo Complete Interpretation Summary Normal LV size. Left ventricular systolic function is normal. The estimated ejection fraction is 60 %. Peak aortic valve gradient 34 mmHg. Mean aortic valve gradient 17 mmHg. Stable appearing bioprosthetic aortic valve apparatus. Mild (1+) tricuspid valve insufficiency. Pulmonary artery systolic pressure is 30 mmHg. Ordering Physician: Jasper Larson Referring Physician: Blaine Anderson Performed By: Otoniel Evans RCS
[2022-05-02 15:44] LABS: Absolute Lymphocyte Count 3.06 X10^3/uL (0.83-4.51); Absolute Neutrophil Count 5.2 X10^3/uL (2.0-7.7); Basophil# 0.05 X10^3/uL; Basophil% 0.5 % (0-1); Eosinophil# 0.25 X10^3/uL; Eosinophils% 2.7 % (0-5); Hematocrit 38.6 % (37-47); Hemoglobin 12.9 g/dL (12.0-15.0); Lymphocyte # 3.06 X10^3/ul (0.83-4.51); Lymphocyte % 33.2 % (19-41); Mean Corp Hgb Conc 33.4 g/dL (32-36); Mean Corpuscular Hgb 29.2 pg (27.0-32.0); Mean Corpuscular Volume 87.3 fL (81-99); Monocyte# 0.61 X10^3/uL; Monocyte% 6.6 % (0-10); NRBC Flagged by Analyzer 0 % (0-5); Neutrophil # 5.22 X10^3/uL (2.7-7.7); Neutrophil % 56.8 % (47-70); Platelet Count 317 K/mm3 (150-450); RBC Distribution Width CV 13.2 % (11.6-14.6); RBC Distribution Width SD 41.7 fl (35.1-43.9); Red Blood Count 4.42 M/mm3 (4.2-5.4); White Blood Count 9.2 K/mm3 (4.4-11.0)
[2022-05-02 16:41] LABS: Anion Gap 9 (5-15); BUN 19 mg/dL (7-18); BUN/Creat Ratio 18.3 RATIO (10-20); Calcium,Total 9.4 mg/dL (8.5-10.1); Chloride 101 mmol/L (98-107); Creatinine, Serum 1.04 mg/dL (0.55-1.02); EST Glomerular Filtration Rate 54 mL/min (>60); Est Glom Filt Rate - Afr Amer 66 mL/min (>60); Glucose 165 mg/dL (74-106); Potassium 3.2 mmol/L (3.5-5.1); Sodium Level 139 mmol/L (136-145)
== END | disposition home or self-care (01) ==
PROVIDERS: Internal Medicine Cardiovascular Disease; PCP Family Medicine; Visit Provider Nurse Practitioner Gerontology
DX: I49.8 Other specified cardiac arrhythmias (principal); I25.10 Atherosclerotic heart disease of native coronary artery without angina pectoris; Z95.1 Presence of aortocoronary bypass graft; Z95.2 Presence of prosthetic heart valve; Z95.5 Presence of coronary angioplasty implant and graft
CPT/HCPCS: 36415; 80048; 85025; 93306